=== PATIENT | female | born 1940 | race Two or more races ===

== ENCOUNTER 2017-10-10 16:28 | Emergency (ER) | payer OTHER ==
[~2017-10-10] VITALS: Ht 152.4 cm; Wt 53.5 kg
[~2017-10-10 16:28] MED LIST: CARAFATE SU1 G/10 ML PO; CARAFATE1 G PO; METOCLOPRAMIDE H5 MG PO; NORVASC2.5 MG PO; PEPCID AC20 MG PO; PLAVIX75 MG; PREVACID15 MG PO; PROTONIX40 MG PO; REGLAN PO; REGLAN5 MG/5 ML PO; ZANTAC300 MG PO; ZOFRAN4 MG PO
[2017-10-11] MEDS ORDERED: PEPCID40 MG/5 ML PO (04:36)
[2017-10-11] MEDS ORDERED: PHENERGAN50 MG RECTAL (04:36)
== END 2017-10-11 04:32 | disposition home or self-care (01) ==
LOC: ER 16:28
DX: K29.70 Gastritis, unspecified, without bleeding (principal)

== ENCOUNTER → 2023-03-28 | Emergency (ER) | payer OTHER ==
[~2023-03-28] VITALS: Ht 152.4 cm; Wt 44.0 kg
[~2023-03-28] MED LIST changes: +HYDROCHLOROTHIA25 MG PO; +PEPCID40 MG/5 ML PO; +PHENERGAN50 MG RECTAL
== END | disposition home or self-care (01) ==
LOC: ER 19:40
DX: K29.70 Gastritis, unspecified, without bleeding (principal); I10 Essential (primary) hypertension
CPT/HCPCS: 36415; 96365; 96366; 99284; J2405; J7030

== ENCOUNTER 2024-03-25 10:49 | Emergency (ER) | payer OTHER ==
[~2024-03-25] VITALS: Ht 152.4 cm; Wt 42.6 kg
[2024-03-25] MEDS ORDERED: 0.9 % SODIUM CHLORIDE 1,000 ML IV SCH (12:00)
[2024-03-25] MEDS ORDERED: BARIUM SULFATE 450 ML ORAL.SUSP PO ONE (12:49)
[2024-03-25 13:01] LABS: HEMATOCRIT 31.7 % (36.0-45.00); MEAN CELL VOLUME 79.1 fL (80.00-100.00); MEAN CORPUSCULAR HGB CONC 31.5 g/dl (32.0-36.0); PLATELET COUNT 196 K/uL (150-450); RED BLOOD COUNT 4.01 M/uL (4.00-6.00); RED CELL DISTRIBUTION WIDTH 17.9 % (11.5-14.5)
[2024-03-25 13:42] LABS: CALCIUM 9.7 mg/dL (8.5-10.1); CREATININE SERUM 0.86 mg/dL (0.55-1.02); GFR 62.71; POTASSIUM 4.32 mEq/L (3.5-5.1)
[2024-03-25] MEDS ORDERED: MEPERIDINE HCL/PF 25 MG/ML VIAL IV ONE (14:15)
[2024-03-25 14:45] LABS: URINE APPEARANCE Clear; URINE BILIRRUBIN Negative (NEGATIVE); URINE BLOOD Negative; URINE COLOR Yellow; URINE KETONE Negative (NEGATIVE); URINE LEUKOCYTE Negative; URINE NITRATE Negative; URINE PROTEIN Trace (NEGATIVE); URINE UROBILINOGEN 0.2 E.U./dl
[2024-03-25 14:46] LABS: URINE BACTERIA 27.6 uL (0.0-1933); URINE RBC 9.9 uL (0.0-20.8); URINE WBC 3.2 uL (0.0-23.2)
[2024-03-25 14:58] LABS: URINE GLUCOSE 100 MG/DL (NEGATIVE)
[2024-03-25] MEDS ORDERED: LEVSIN/SL0.125 MG SL (18:03)
[2024-03-25] MEDS ORDERED: PEPCID AC20 MG PO (18:03)
== END 2024-03-25 18:15 | disposition home or self-care (01) ==
LOC: ER 10:49
PROVIDERS: Emergency Medicine
DX: R10.11 Right upper quadrant pain (principal); R10.9 Unspecified abdominal pain; R11.10 Vomiting, unspecified; I10 Essential (primary) hypertension; Z88.6 Allergy status to analgesic agent
CPT/HCPCS: 36415; 74177; 96365; 96366; 99284; J3490; J7030; Q9965

== ENCOUNTER 2024-04-29 08:02 | Outpatient (CLI) | payer OTHER ==
[~2024-04-29 08:02] MED LIST changes: +LEVSIN/SL0.125 MG SL
[2024-04-29 09:20] LABS: HEMATOCRIT 29.7 % (36.0-45.00); HEMOGLOBIN 9.2 g/dL (12.0-15.00); MEAN CELL VOLUME 80.5 fL (80.00-100.00); PLATELET COUNT 234 K/uL (150-450); RED BLOOD COUNT 3.69 M/uL (4.00-6.00); RED CELL DISTRIBUTION WIDTH 17.7 % (11.5-14.5)
[2024-04-29 10:16] LABS: ALBUMIN 3.9 gm/dL (3.4-5.0); BILIRUBIN TOTAL 0.71 mg/dL (0.3-1.2); CALCIUM 9.2 mg/dL (8.5-10.1); CREATININE SERUM 0.93 mg/dL (0.55-1.02); GFR 57.3; GLOBULINA 3.8 G/DL (2.4-3.5); POTASSIUM 4.07 mEq/L (3.5-5.1); TOTAL PROTEIN 7.7 gm/dL (6.4-8.2)
[2024-04-29 10:23] LABS: FERRITIN 4.3 NG/ML (8-252)
[2024-04-29 15:22] LABS: FOLIC ACID 18.53 ng/ml (4.78-20)
[2024-04-30 13:11] LABS: CA 125 5.5 U/mL (0.0-38.1); CA 15-3 18.5 U/mL (0.0-25.0); CA 19-9 < 2 U/mL (0-35)
== END 2024-04-29 08:03 | disposition home or self-care (01) ==
LOC: LAB 08:02
PROVIDERS: ATTEND Internal Medicine Hematology & Oncology
DX: C16.9 Malignant neoplasm of stomach, unspecified (principal); Z85.028 Personal history of other malignant neoplasm of stomach; D51.1 Vitamin B12 deficiency anemia due to selective vitamin B12 malabsorption with proteinuria; M81.0 Age-related osteoporosis without current pathological fracture; D50.8 Other iron deficiency anemias; D53.9 Nutritional anemia, unspecified; Z95.1 Presence of aortocoronary bypass graft; I25.119 Atherosclerotic heart disease of native coronary artery with unspecified angina pectoris; E78.5 Hyperlipidemia, unspecified; E04.2 Nontoxic multinodular goiter; E06.3 Autoimmune thyroiditis; I10 Essential (primary) hypertension; E55.9 Vitamin D deficiency, unspecified; K90.89 Other intestinal malabsorption; R74.02 Elevation of levels of lactic acid dehydrogenase [LDH]; K76.89 Other specified diseases of liver; C50.919 Malignant neoplasm of unspecified site of unspecified female breast; R97.8 Other abnormal tumor markers; R97.0 Elevated carcinoembryonic antigen [CEA]

== ENCOUNTER 2024-06-07 07:21 | Outpatient (CLI) | payer OTHER | END 2024-06-07 07:22 | disposition home or self-care (01) | LOC: NUCLEAR 07:21 | PROVIDERS: ATTEND Internal Medicine | DX: I20.9 Angina pectoris, unspecified (principal) | CPT/HCPCS: 78452; 93017; A9500; J0153 ==

== ENCOUNTER → 2024-09-03 13:39 | Outpatient (CLI) | payer OTHER ==
[2024-09-03 14:48] LABS: HEMATOCRIT 41.2 % (36.0-45.00); HEMOGLOBIN 13.8 g/dL (12.0-15.00); MEAN CELL VOLUME 92.2 fL (80.00-100.00); MEAN CORPUSCULAR HEMOGLOBIN 30.9 pg (27.00-32.0); MEAN CORPUSCULAR HGB CONC 33.5 g/dl (32.0-36.0); PLATELET COUNT 160 K/uL (150-450); RED BLOOD COUNT 4.46 M/uL (4.00-6.00); RED CELL DISTRIBUTION WIDTH 14.4 % (11.5-14.5)
[2024-09-03 15:41] LABS: % SATURACION 19.9 % (15-50); ALBUMIN 4.1 gm/dL (3.4-5.0); BILIRUBIN TOTAL 0.66 mg/dL (0.3-1.2); CALCIUM 9.4 mg/dL (8.5-10.1); CREATININE SERUM 0.88 mg/dL (0.55-1.02); FERRITIN 14.7 NG/ML (8-252); GFR 61.07; GLOBULINA 3.6 G/DL (2.4-3.5); POTASSIUM 4.27 mEq/L (3.5-5.1); TOTAL PROTEIN 7.7 gm/dL (6.4-8.2)
[2024-09-04 09:40] LABS: FOLIC ACID 18.37 ng/ml (4.78-20)
== END | disposition home or self-care (01) ==
LOC: LAB 13:39
PROVIDERS: ATTEND Internal Medicine Hematology & Oncology
DX: C16.9 Malignant neoplasm of stomach, unspecified (principal); Z85.028 Personal history of other malignant neoplasm of stomach; D51.1 Vitamin B12 deficiency anemia due to selective vitamin B12 malabsorption with proteinuria; M81.0 Age-related osteoporosis without current pathological fracture; D50.8 Other iron deficiency anemias; D53.9 Nutritional anemia, unspecified; Z95.1 Presence of aortocoronary bypass graft; I25.119 Atherosclerotic heart disease of native coronary artery with unspecified angina pectoris; E78.5 Hyperlipidemia, unspecified; E04.2 Nontoxic multinodular goiter; E06.3 Autoimmune thyroiditis; I10 Essential (primary) hypertension; E55.9 Vitamin D deficiency, unspecified; K90.89 Other intestinal malabsorption; R74.02 Elevation of levels of lactic acid dehydrogenase [LDH]; K76.89 Other specified diseases of liver; D51.3 Other dietary vitamin B12 deficiency anemia

== ENCOUNTER 2024-11-27 06:35 | Day surgery (SDC) | payer OTHER ==
[2024-11-21 08:32] LABS: PH,URINE 6.5 (5.0-8.0); URINE APPEARANCE Clear; URINE BILIRRUBIN Negative (NEGATIVE); URINE BLOOD Negative; URINE COLOR Yellow; URINE GLUCOSE Negative (NEGATIVE); URINE KETONE Negative (NEGATIVE); URINE LEUKOCYTE Negative; URINE NITRATE Negative; URINE PROTEIN Negative (NEGATIVE); URINE UROBILINOGEN 0.2 E.U./dl
[2024-11-21 08:40] VITALS: BP 170/75
[2024-11-21 08:41] LABS: URINE RBC 1.9 uL (0.0-20.8); URINE WBC 1.5 uL (0.0-23.2)
[2024-11-21 08:52] LABS: HEMATOCRIT 40.5 % (36.0-45.00); HEMOGLOBIN 13.6 g/dL (12.0-15.00); MEAN CELL VOLUME 94.4 fL (80.00-100.00); MEAN CORPUSCULAR HEMOGLOBIN 31.6 pg (27.00-32.0); MEAN CORPUSCULAR HGB CONC 33.5 g/dl (32.0-36.0); PLATELET COUNT 167 K/uL (150-450); RED CELL DISTRIBUTION WIDTH 14.1 % (11.5-14.5)
[2024-11-21 09:36] LABS: ALBUMIN 4.1 gm/dL (3.4-5.0); BILIRUBIN TOTAL 0.66 mg/dL (0.3-1.2); CALCIUM 9.6 mg/dL (8.5-10.1); CREATININE SERUM 0.89 mg/dL (0.55-1.02); GFR 60.28; GLOBULINA 3.6 G/DL (2.4-3.5); POTASSIUM 4.54 mEq/L (3.5-5.1); TOTAL PROTEIN 7.7 gm/dL (6.4-8.2)
[2024-11-21 10:06] LABS: INR 1.01; PARTIAL THROMBOPLASTIN TIME 28.7 SECONDS (22.0-34.0)
[~2024-11-27] VITALS: Ht 152.4 cm; Wt 44.0 kg
[2024-11-27] MEDS ORDERED: CEFAZOLIN SODIUM 1,000 MG VIAL ONE (07:01)
[2024-11-27] MEDS ORDERED: BUPIVACAINE HCL/Mpf 0.5% 10ML VIAL ONE (07:10)
[2024-11-27] MEDS ORDERED: MORPHINE SULFATE 2 MG/ML CARTRIDGE IV ONE (09:55)
== END 2024-11-27 11:50 | disposition home or self-care (01) ==
LOC: CIR.AMB 06:35
PROVIDERS: ATTEND Surgery
DX: K80.10 Calculus of gallbladder with chronic cholecystitis without obstruction (principal); Z88.6 Allergy status to analgesic agent